=== PATIENT | female | born 1980 ===

== ENCOUNTER 2018-12-06 09:00 | Outpatient (CLI) | payer OTHER ==
[~2018-12-06 09:00] MED LIST: ATARAX50 MG; DICLOFENAC POTA50 MG PO; METHOCARBAMOL500 MG PO
== END 2018-12-06 09:12 | disposition home or self-care (01) ==
LOC: LAB 09:00
DX: Z11.4 Encounter for screening for human immunodeficiency virus [HIV] (principal); Z02.79 Encounter for issue of other medical certificate; R07.89 Other chest pain

== ENCOUNTER 2019-08-04 12:05 | Outpatient (CLI) | payer OTHER | END 2019-08-04 13:00 | disposition home or self-care (01) | LOC: MAMO-SONO 12:05 | DX: N60.11 Diffuse cystic mastopathy of right breast (principal); N60.12 Diffuse cystic mastopathy of left breast; N63.11 Unspecified lump in the right breast, upper outer quadrant ==

== ENCOUNTER 2019-09-19 08:05 | Day surgery (SDC) | payer OTHER ==
[~2019-09-19 08:05] MED LIST changes: +DUPIXENT300 MG/2 M PO
== END 2019-09-19 15:15 | disposition home or self-care (01) ==
LOC: U 08:05 → CIR.AMB 08:05
DX: D24.1 Benign neoplasm of right breast (principal)

== ENCOUNTER 2021-03-28 15:27 | Outpatient (CLI) | payer OTHER | END 2021-03-28 16:15 | disposition home or self-care (01) | LOC: PRENATAL 15:27 | PROVIDERS: ATTEND Obstetrics & Gynecology Maternal & Fetal Medicine | DX: Z36.89 Encounter for other specified antenatal screening (principal); O36.80X1 Pregnancy with inconclusive fetal viability, fetus 1; O09.521 Supervision of elderly multigravida, first trimester; Z3A.13 13 weeks gestation of pregnancy ==

== ENCOUNTER 2021-05-25 12:51 | Outpatient (CLI) | payer OTHER | END 2021-05-25 14:47 | disposition home or self-care (01) | LOC: PRENATAL 12:51 | PROVIDERS: ATTEND Obstetrics & Gynecology Maternal & Fetal Medicine | DX: O35.0XX1 Maternal care for (suspected) central nervous system malformation in fetus, fetus 1 (principal); O35.3XX1 Maternal care for (suspected) damage to fetus from viral disease in mother, fetus 1; O98.512 Other viral diseases complicating pregnancy, second trimester; O09.522 Supervision of elderly multigravida, second trimester; Z36.89 Encounter for other specified antenatal screening; Z3A.19 19 weeks gestation of pregnancy ==